=== PATIENT | female | born 1985 | race Caucasian/White ===

== ENCOUNTER 2017-12-23 13:05 | Emergency (ER) | payer OTHER ==
[~2017-12-23] VITALS: Ht 162.6 cm; Wt 162.4 kg
[~2017-12-23 13:05] MED LIST: ALBUTEROL INHAL17 GM IH; AMOXICILLIN 50500 MG PO; AMOXICILLIN875 MG PO; CELEXA 20 MG TA20 M1; CELEXA20 MG PO; CIPRO500 MG PO; CYCLOBENZAPRINE5 MG PO; DICLOFENAC SODI75 MG PO; FLAGYL500 MG PO; HYDROCODONE-AP1 EAC6 PO; IBUPROFEN 600600 M1 PO; IBUPROFEN 800800 M1 PO; IBUPROFEN 800800 MG PO; LORTABELXR PO; MACROBID 100 M100 M1 PO; MOBIC7.5 MG PO; NORCO 5-325 TA1 EACH PO; PRENATAL; PROTONIX40 M2; PROTONIX40 M2 PO; PYRIDIUM200 MG PO; RANITIDINE 150150 MG PO; TRAMADOL 50 MG50 MG PO; TUMS PO; TUSSIN COUGH15 MG; ZOFRAN ODT4 MG PO; ZOLOFT 50 MG TA50 M1 PO; ZOLOFT25 MG PO; ZPAK PO
[2017-12-23] MEDS ORDERED: ZANTAC 150MG T150 MG PO (13:12)
[2017-12-23 13:35] LABS: INFLUENZA A ANTIGEN None Detected (None Detect); INFLUENZA B ANTIGEN None Detected (None Detect)
[2017-12-23] MEDS ORDERED: PROAIR HFA8.5 GM INH (14:31)
[2017-12-23] MEDS ORDERED: MEDROLDOSEPACK PO (14:31)
[2017-12-23] MEDS ORDERED: PROMETHAZINE V473 ML PO (14:31)
[2017-12-23] MEDS ORDERED: ZPAK PO (14:31)
[2017-12-23] MEDS ORDERED: AUGMENTIN 875-1 EACH PO (14:38)
[2017-12-23 14:39] VITALS: BP 177/102
== END 2017-12-23 14:40 | disposition home or self-care (01) ==
LOC: M.ERS 13:05
PROVIDERS: Physician Assistant
DX: J20.9 Acute bronchitis, unspecified (principal); K21.9 Gastro-esophageal reflux disease without esophagitis; F32.9 Major depressive disorder, single episode, unspecified; Z98.890 Other specified postprocedural states; Z88.1 Allergy status to other antibiotic agents

== ENCOUNTER 2018-06-05 12:00 | Emergency (ER) | payer OTHER ==
[~2018-06-05] VITALS: Ht 162.6 cm; Wt 162.4 kg
[~2018-06-05 12:00] MED LIST changes: +AUGMENTIN 875-1 EACH PO; +MEDROLDOSEPACK PO; +PROAIR HFA8.5 GM INH; +PROMETHAZINE V473 ML PO; +ZANTAC 150MG T150 MG PO
[2018-06-05] MEDS ORDERED: METFORMIN HCL500 MG PO (12:15)
[2018-06-05] MEDS ORDERED: WELLBUTRIN SR100 MG PO (12:15)
[2018-06-05] MEDS ORDERED: CELEXA10 MG PO (12:15)
[2018-06-05] MEDS ORDERED: GLIMEPIRIDE4 MG PO (12:16)
[2018-06-05 12:20] LABS: URINE BILIRUBIN NEGATIVE (Negative); URINE BLOOD TRACE (Negative); URINE CLARITY CLEAR; URINE COLOR YELLOW; URINE GLUCOSE-RANDOM NEGATIVE (Negative); URINE KETONES NEGATIVE (Negative); URINE LEUKOCYTES-REFLEX NEGATIVE (Negative); URINE NITRITE-REFLEX NEGATIVE (Negative); URINE PROTEIN NEGATIVE (Negative); URINE SPECIFIC GRAVITY 1.025 (1.005-1.030)
[2018-06-05 12:43] LABS: ABSOLUTE BASOPHILS 0.1 thou/uL (0.0-0.2); ABSOLUTE EOSINOPHILS 0.2 thou/uL (0.0-0.7); ABSOLUTE LYMPHOCYTES 2.6 thou/uL (0.8-5.3); ABSOLUTE MONOCYTES 0.8 thou/uL (0.0-1.2); ABSOLUTE NEUTROPHILS 7.7 thou/uL (1.6-8.1); BASOPHILS 1.1 %; EOSINOPHILS 1.9 %; HEMATOCRIT 41.2 % (37.0-47.0); HEMOGLOBIN 14.2 gm/dL (12.0-15.0); LYMPHOCYTES 22.4 %; MCH 30.6 pg (26.0-34.0); MCHC 34.5 g/dL (28.0-37.0); MCV 88.9 fL (80.0-100.0); MONOCYTES 7.2 %; MPV 7.8 fl. (7.2-11.1); NUCLEATED RBCS 0 /100WBC; PLATELET COUNT* 268 thou/uL (150-400); POLYS 67.4 %; RBC 4.63 mil/uL (4.20-5.00); WBC 11.4 thou/uL (4.0-11.0)
[2018-06-05 12:52] LABS: CALCIUM 8.2 mg/dL (8.5-10.1); CREATININE 0.6 mg/dL (0.6-1.3); POTASSIUM 3.7 mmol/L (3.5-5.1)
[2018-06-05 12:56] LABS: ALBUMIN 3.1 g/dL (3.4-5.0); TOTAL BILIRUBIN 0.2 mg/dL (<0.1-1.0); TOTAL PROTEIN 7.7 g/dL (6.4-8.2)
[2018-06-05 15:13] VITALS: BP 138/71
== END 2018-06-05 15:16 | disposition home or self-care (01) ==
LOC: M.ERS 12:00
PROVIDERS: Nurse Practitioner Family
DX: R10.32 Left lower quadrant pain (principal); K21.9 Gastro-esophageal reflux disease without esophagitis; F32.9 Major depressive disorder, single episode, unspecified; Z90.49 Acquired absence of other specified parts of digestive tract; Z98.890 Other specified postprocedural states; Z88.1 Allergy status to other antibiotic agents

== ENCOUNTER 2018-12-23 09:29 | Emergency (ER) | payer OTHER ==
[~2018-12-23] VITALS: Ht 162.6 cm; Wt 156.5 kg
[~2018-12-23 09:29] MED LIST changes: +CELEXA10 MG PO; +GLIMEPIRIDE4 MG PO; +METFORMIN HCL500 MG PO; +WELLBUTRIN SR100 MG PO
[2018-12-23] MEDS ORDERED: TRULICITY0.75 MG/0. INJECTION (09:38)
[2018-12-23] MEDS ORDERED: KEFLEX500 M1 PO (11:24)
[2018-12-23 11:45] VITALS: BP 150/77
== END 2018-12-23 11:40 | disposition home or self-care (01) ==
LOC: M.ERS 09:29
DX: R22.1 Localized swelling, mass and lump, neck (principal); K21.9 Gastro-esophageal reflux disease without esophagitis; F32.9 Major depressive disorder, single episode, unspecified; E11.9 Type 2 diabetes mellitus without complications; Z88.1 Allergy status to other antibiotic agents; Z98.890 Other specified postprocedural states

== ENCOUNTER → 2018-12-26 | Outpatient (CLI) | payer OTHER ==
[~2018-12-26] MED LIST changes: +KEFLEX500 M1 PO; +TRULICITY0.75 MG/0. INJECTION
[2018-12-26 11:32] LABS: HEMATOCRIT 40.3 % (37.0-47.0); HEMOGLOBIN 13.5 gm/dL (12.0-15.0); MCH 29.5 pg (26.0-34.0); MCHC 33.6 g/dL (28.0-37.0); MPV 7.4 fl. (7.2-11.1); RBC 4.58 mil/uL (4.20-5.00); WBC 14.9 thou/uL (4.0-11.0)
[2018-12-26 11:44] LABS: CALCIUM 8.8 mg/dL (8.5-10.1); CREATININE 0.7 mg/dL (0.6-1.3); POTASSIUM 3.9 mmol/L (3.5-5.1); TOTAL BILIRUBIN 0.3 mg/dL (<0.1-1.0); TOTAL PROTEIN 7.8 g/dL (6.4-8.2)
== END ==
LOC: M.LAB 10:45 → M.CT 11:30
PROVIDERS: Nurse Practitioner Family
DX: R22.1 Localized swelling, mass and lump, neck (principal)

== ENCOUNTER 2019-03-16 09:56 | Emergency (ER) | payer OTHER ==
[~2019-03-16] VITALS: Ht 162.6 cm; Wt 156.0 kg
[2019-03-16] MEDS ORDERED: HYDROCODONE-AP1 EAC6 PO (10:59)
[2019-03-16] MEDS ORDERED: NABUMETONE 750750 M1 PO (10:59)
[2019-03-16 11:17] VITALS: BP 172/102
== END 2019-03-16 11:17 | disposition home or self-care (01) ==
LOC: M.ERS 09:56
DX: G56.32 Lesion of radial nerve, left upper limb (principal); K21.9 Gastro-esophageal reflux disease without esophagitis; F32.9 Major depressive disorder, single episode, unspecified; E11.9 Type 2 diabetes mellitus without complications; Z98.890 Other specified postprocedural states; Z88.1 Allergy status to other antibiotic agents; Z91.041 Radiographic dye allergy status

== ENCOUNTER 2019-05-05 13:43 | Emergency (ER) | payer OTHER ==
[~2019-05-05] VITALS: Ht 162.6 cm; Wt 156.0 kg
[~2019-05-05 13:43] MED LIST changes: +NABUMETONE 750750 M1 PO
[2019-05-05] MEDS ORDERED: COZAAR 25 MG TA25 M1 (13:55)
[2019-05-05 14:10] LABS: URINE BILIRUBIN NEGATIVE (Negative); URINE BLOOD TRACE (Negative); URINE CLARITY CLEAR; URINE COLOR YELLOW; URINE GLUCOSE-RANDOM NEGATIVE (Negative); URINE KETONES NEGATIVE (Negative); URINE LEUKOCYTES-REFLEX NEGATIVE (Negative); URINE NITRITE-REFLEX NEGATIVE (Negative); URINE PROTEIN NEGATIVE (Negative); URINE UROBILINOGEN 0.2 E.U./dl (0.2-1.0)
[2019-05-05] MEDS ORDERED: BUTALB-APAP-CA1 EACH PO (14:53)
[2019-05-05 15:00] VITALS: BP 109/63
== END 2019-05-05 15:04 | disposition home or self-care (01) ==
LOC: M.ERS 13:43
PROVIDERS: Nurse Practitioner Psychiatric/Mental Health
DX: R51 Headache (principal); R11.2 Nausea with vomiting, unspecified; K21.9 Gastro-esophageal reflux disease without esophagitis; F32.9 Major depressive disorder, single episode, unspecified; E11.9 Type 2 diabetes mellitus without complications; Z88.1 Allergy status to other antibiotic agents; Z91.041 Radiographic dye allergy status; Z90.49 Acquired absence of other specified parts of digestive tract; Z98.890 Other specified postprocedural states

== ENCOUNTER 2019-06-01 10:20 | Emergency (ER) | payer OTHER ==
[~2019-06-01] VITALS: Ht 162.6 cm; Wt 156.0 kg
[~2019-06-01 10:20] MED LIST changes: +BUTALB-APAP-CA1 EACH PO; +COZAAR 25 MG TA25 M1; +PHENERGAN 25 MG25 M1 PO; +PROPRANOLOL 1010 MG PO
[2019-06-01 11:17] LABS: ABSOLUTE BASOPHILS 0.1 thou/uL (0.0-0.2); ABSOLUTE EOSINOPHILS 0.1 thou/uL (0.0-0.7); ABSOLUTE MONOCYTES 0.8 thou/uL (0.0-1.2); ABSOLUTE NEUTROPHILS 4.9 thou/uL (1.6-8.1); BASOPHILS 0.7 %; EOSINOPHILS 1.4 %; HEMATOCRIT 40.1 % (37.0-47.0); HEMOGLOBIN 13.5 gm/dL (12.0-15.0); LYMPHOCYTES 25.4 %; MCH 29.3 pg (26.0-34.0); MCHC 33.7 g/dL (28.0-37.0); MCV 86.8 fL (80.0-100.0); MONOCYTES 10.5 %; MPV 7.8 fl. (7.2-11.1); NUCLEATED RBCS 0 /100WBC; PLATELET COUNT* 257 thou/uL (150-400); RBC 4.62 mil/uL (4.20-5.00); RDW-CV 13.4 % (10.5-14.5); WBC 7.9 thou/uL (4.0-11.0)
[2019-06-01 11:18] LABS: URINE BILIRUBIN NEGATIVE (Negative); URINE BLOOD 3+ (Negative); URINE CLARITY CLEAR; URINE COLOR YELLOW; URINE GLUCOSE-RANDOM NEGATIVE (Negative); URINE KETONES NEGATIVE (Negative); URINE LEUKOCYTES-REFLEX NEGATIVE (Negative); URINE NITRITE-REFLEX NEGATIVE (Negative); URINE PROTEIN NEGATIVE (Negative); URINE SPECIFIC GRAVITY <= 1.005 (1.005-1.030); URINE UROBILINOGEN 0.2 E.U./dl (0.2-1.0)
[2019-06-01 11:24] LABS: ANION GAP 8 mmol/L (7-16); BUN 7 mg/dL (7-18); CALCIUM 8.7 mg/dL (8.5-10.1); CHLORIDE 104 mmol/L (98-107); CO2 26 mmol/L (21-32); CREATININE 0.7 mg/dL (0.6-1.3); GLUCOSE 103 mg/dL (70-99); POTASSIUM 4.1 mmol/L (3.5-5.1); SODIUM 138 mmol/L (136-145)
[2019-06-01 11:29] LABS: SGOT 23 U/L (15-37); SGPT 38 U/L (30-65); TOTAL BILIRUBIN 0.2 mg/dL (<0.1-1.0); TOTAL PROTEIN 7.4 g/dL (6.4-8.2)
[2019-06-01 11:34] LABS: BACTERIA-REFLEX 1-9 Few /HPF (None Seen); CASTS None Seen /LPF (None Seen); CRYSTALS None Seen /LPF (None Seen); MUCUS None Seen strn/LPF (None Seen); SQUAMOUS >10 Many /LPF (0-3); URINE RBC 3-10 Few /HPF (0-2); URINE WBC-REFLEX 0-5 Rare /HPF (0-5)
[2019-06-01] MEDS ORDERED: TRANSDERM-SCOP1 EACH TRANSDERM (12:00)
[2019-06-01 12:18] VITALS: BP 143/82
== END 2019-06-01 12:18 | disposition home or self-care (01) ==
LOC: M.ERS 10:20
PROVIDERS: Physician Assistant
DX: R51 Headache (principal); R42 Dizziness and giddiness; K21.9 Gastro-esophageal reflux disease without esophagitis; F32.9 Major depressive disorder, single episode, unspecified; E11.9 Type 2 diabetes mellitus without complications; Z88.1 Allergy status to other antibiotic agents; Z91.041 Radiographic dye allergy status; Z90.49 Acquired absence of other specified parts of digestive tract; Z98.890 Other specified postprocedural states

== ENCOUNTER 2019-06-02 08:28 | Emergency (ER) | payer OTHER ==
[~2019-06-02] VITALS: Ht 162.6 cm; Wt 156.0 kg
[~2019-06-02 08:28] MED LIST changes: +TRANSDERM-SCOP1 EACH TRANSDERM
[2019-06-02 10:35] VITALS: BP 111/57
== END 2019-06-02 10:35 | disposition home or self-care (01) ==
LOC: M.ERS 08:28
DX: R51 Headache (principal); E11.9 Type 2 diabetes mellitus without complications; F32.9 Major depressive disorder, single episode, unspecified; K21.9 Gastro-esophageal reflux disease without esophagitis; Z91.041 Radiographic dye allergy status; Z88.1 Allergy status to other antibiotic agents; Z98.890 Other specified postprocedural states; Z90.49 Acquired absence of other specified parts of digestive tract

== ENCOUNTER 2019-06-06 17:26 | Emergency (ER) | payer OTHER ==
[~2019-06-06] VITALS: Ht 162.6 cm; Wt 156.5 kg
[2019-06-06] MEDS ORDERED: IMITREX100 MG PO (17:39)
[2019-06-06] MEDS ORDERED: ANTIVERT25 MG PO (18:15)
[2019-06-06] MEDS ORDERED: TRANSDERM-SCOP1 EACH TRANSDERM (18:15)
[2019-06-06 18:36] VITALS: BP 130/68
== END 2019-06-06 18:42 | disposition home or self-care (01) ==
LOC: M.ERS 17:26
DX: G43.909 Migraine, unspecified, not intractable, without status migrainosus (principal); K21.9 Gastro-esophageal reflux disease without esophagitis; F32.9 Major depressive disorder, single episode, unspecified; E11.9 Type 2 diabetes mellitus without complications; Z98.890 Other specified postprocedural states; Z91.041 Radiographic dye allergy status; Z88.1 Allergy status to other antibiotic agents

== ENCOUNTER 2019-06-17 10:03 | Emergency (ER) | payer OTHER ==
[~2019-06-17] VITALS: Ht 162.6 cm; Wt 156.0 kg
[~2019-06-17 10:03] MED LIST changes: +ANTIVERT25 MG PO; +IMITREX100 MG PO
[2019-06-17 10:37] LABS: ABSOLUTE BASOPHILS 0.1 thou/uL (0.0-0.2); ABSOLUTE EOSINOPHILS 0.2 thou/uL (0.0-0.7); ABSOLUTE LYMPHOCYTES 2.9 thou/uL (0.8-5.3); ABSOLUTE MONOCYTES 0.9 thou/uL (0.0-1.2); ABSOLUTE NEUTROPHILS 8.6 thou/uL (1.6-8.1); EOSINOPHILS 1.4 %; HEMATOCRIT 39.7 % (37.0-47.0); HEMOGLOBIN 13.5 gm/dL (12.0-15.0); LYMPHOCYTES 22.6 %; MCH 29.7 pg (26.0-34.0); MCV 87.2 fL (80.0-100.0); MONOCYTES 7.2 %; NUCLEATED RBCS 0 /100WBC; PLATELET COUNT* 268 thou/uL (150-400); POLYS 67.8 %; RBC 4.55 mil/uL (4.20-5.00); RDW-CV 13.5 % (10.5-14.5); WBC 12.7 thou/uL (4.0-11.0)
[2019-06-17 10:55] LABS: CALCIUM 8.2 mg/dL (8.5-10.1); CREATININE 0.6 mg/dL (0.6-1.3); POTASSIUM 4.3 mmol/L (3.5-5.1)
[2019-06-17 11:00] LABS: ALBUMIN 2.9 g/dL (3.4-5.0); TOTAL BILIRUBIN 0.1 mg/dL (<0.1-1.0)
[2019-06-17 12:19] VITALS: BP 128/79
== END 2019-06-17 12:19 | disposition home or self-care (01) ==
LOC: M.ERS 10:03
PROVIDERS: Nurse Practitioner Family
DX: G43.909 Migraine, unspecified, not intractable, without status migrainosus (principal); F32.9 Major depressive disorder, single episode, unspecified; E11.9 Type 2 diabetes mellitus without complications; K21.9 Gastro-esophageal reflux disease without esophagitis; Z98.890 Other specified postprocedural states; Z88.1 Allergy status to other antibiotic agents; Z91.041 Radiographic dye allergy status

== ENCOUNTER 2019-07-09 10:21 | Emergency (ER) | payer OTHER ==
[~2019-07-09] VITALS: Ht 162.6 cm; Wt 156.0 kg
[2019-07-09 12:13] VITALS: BP 132/80
== END 2019-07-09 12:14 | disposition home or self-care (01) ==
LOC: M.ERS 10:21
DX: G43.909 Migraine, unspecified, not intractable, without status migrainosus (principal); K21.9 Gastro-esophageal reflux disease without esophagitis; F32.9 Major depressive disorder, single episode, unspecified; I10 Essential (primary) hypertension; E11.9 Type 2 diabetes mellitus without complications; Z91.041 Radiographic dye allergy status; Z88.1 Allergy status to other antibiotic agents; Z90.49 Acquired absence of other specified parts of digestive tract; Z98.890 Other specified postprocedural states

== ENCOUNTER 2019-07-10 17:31 | Emergency (ER) | payer OTHER ==
[~2019-07-10] VITALS: Ht 162.6 cm; Wt 158.8 kg
[2019-07-10 19:30] VITALS: BP 128/64
== END 2019-07-10 19:30 | disposition home or self-care (01) ==
LOC: M.ERS 17:31
DX: G43.909 Migraine, unspecified, not intractable, without status migrainosus (principal); K21.9 Gastro-esophageal reflux disease without esophagitis; F32.9 Major depressive disorder, single episode, unspecified; E11.9 Type 2 diabetes mellitus without complications; I10 Essential (primary) hypertension; Z88.1 Allergy status to other antibiotic agents; Z91.041 Radiographic dye allergy status; Z98.890 Other specified postprocedural states

== ENCOUNTER 2019-09-23 10:08 | Emergency (ER) | payer OTHER ==
[~2019-09-23] VITALS: Ht 162.6 cm; Wt 167.4 kg
[2019-09-23] MEDS ORDERED: TOPAMAX100 MG PO (10:20)
[2019-09-23 11:44] VITALS: BP 143/87
== END 2019-09-23 11:44 | disposition home or self-care (01) ==
LOC: M.ERS 10:08
DX: S93.491A Sprain of other ligament of right ankle, initial encounter (principal); E11.9 Type 2 diabetes mellitus without complications; I10 Essential (primary) hypertension; G43.909 Migraine, unspecified, not intractable, without status migrainosus; K21.9 Gastro-esophageal reflux disease without esophagitis; F32.9 Major depressive disorder, single episode, unspecified; Z98.890 Other specified postprocedural states; Z88.1 Allergy status to other antibiotic agents; Z91.041 Radiographic dye allergy status; X58.XXXA Exposure to other specified factors, initial encounter; Y93.89 Activity, other specified; Y92.89 Other specified places as the place of occurrence of the external cause; Y99.8 Other external cause status

== ENCOUNTER 2019-11-10 12:05 | Emergency (ER) | payer OTHER ==
[~2019-11-10] VITALS: Ht 162.6 cm; Wt 169.7 kg
[~2019-11-10 12:05] MED LIST changes: +TOPAMAX100 MG PO
[2019-11-10] MEDS ORDERED: NORCO 5-325 TA1 EAC1 PO (13:53)
[2019-11-10 14:04] VITALS: BP 135/85
== END 2019-11-10 14:05 | disposition home or self-care (01) ==
LOC: M.ERS 12:05
DX: M77.51 Other enthesopathy of right foot and ankle (principal); I10 Essential (primary) hypertension; E11.9 Type 2 diabetes mellitus without complications; G43.909 Migraine, unspecified, not intractable, without status migrainosus; K21.9 Gastro-esophageal reflux disease without esophagitis; Z98.890 Other specified postprocedural states; Z90.49 Acquired absence of other specified parts of digestive tract; Z88.1 Allergy status to other antibiotic agents; Z91.041 Radiographic dye allergy status

== ENCOUNTER 2019-11-16 14:47 | Emergency (ER) | payer OTHER ==
[~2019-11-16] VITALS: Ht 162.6 cm; Wt 167.8 kg
[~2019-11-16 14:47] MED LIST changes: +NORCO 5-325 TA1 EAC1 PO
[2019-11-16] MEDS ORDERED: IBUPROFEN 600600 M1 PO (19:12)
[2019-11-16 19:15] VITALS: BP 140/89
== END 2019-11-16 19:16 | disposition home or self-care (01) ==
LOC: M.ERS 14:47
DX: M25.512 Pain in left shoulder (principal); K21.9 Gastro-esophageal reflux disease without esophagitis; E11.9 Type 2 diabetes mellitus without complications; I10 Essential (primary) hypertension; G43.909 Migraine, unspecified, not intractable, without status migrainosus; E66.01 Morbid (severe) obesity due to excess calories; Z68.44 Body mass index [BMI] 60.0-69.9, adult; Z88.1 Allergy status to other antibiotic agents; Z91.041 Radiographic dye allergy status; Z98.890 Other specified postprocedural states

== ENCOUNTER 2019-11-20 16:27 | Emergency (ER) | payer OTHER ==
[~2019-11-20] VITALS: Ht 162.6 cm; Wt 167.8 kg
[2019-11-20 17:42] LABS: ABSOLUTE BASOPHILS 0.1 thou/uL (0.0-0.2); ABSOLUTE EOSINOPHILS 0.2 thou/uL (0.0-0.7); ABSOLUTE LYMPHOCYTES 2.4 thou/uL (0.8-5.3); ABSOLUTE MONOCYTES 0.7 thou/uL (0.0-1.2); ABSOLUTE NEUTROPHILS 7.8 thou/uL (1.6-8.1); BASOPHILS 1.1 %; EOSINOPHILS 1.9 %; HEMATOCRIT 44.5 % (37.0-47.0); HEMOGLOBIN 15.1 gm/dL (12.0-15.0); LYMPHOCYTES 21.5 %; MCH 29.7 pg (26.0-34.0); MCHC 33.8 g/dL (28.0-37.0); MCV 87.6 fL (80.0-100.0); MPV 8.1 fl. (7.2-11.1); NUCLEATED RBCS 0 /100WBC; PLATELET COUNT* 242 thou/uL (150-400); POLYS 69.5 %; RBC 5.08 mil/uL (4.20-5.00); RDW-CV 13.6 % (10.5-14.5); WBC 11.2 thou/uL (4.0-11.0)
[2019-11-20 17:50] LABS: CALCIUM 8.6 mg/dL (8.5-10.1); CREATININE 0.8 mg/dL (0.6-1.3); POTASSIUM 3.8 mmol/L (3.5-5.1)
[2019-11-20 17:55] LABS: ALBUMIN 3.2 g/dL (3.4-5.0); TOTAL BILIRUBIN 0.4 mg/dL (<0.1-1.0); TOTAL PROTEIN 7.9 g/dL (6.4-8.2)
[2019-11-20 18:36] VITALS: BP 158/98
== END 2019-11-20 18:40 | disposition home or self-care (01) ==
LOC: M.ERS 16:27
PROVIDERS: Physician Assistant
DX: G43.909 Migraine, unspecified, not intractable, without status migrainosus (principal); R74.0 Nonspecific elevation of levels of transaminase and lactic acid dehydrogenase [LDH]; R11.0 Nausea; K21.9 Gastro-esophageal reflux disease without esophagitis; I10 Essential (primary) hypertension; E11.9 Type 2 diabetes mellitus without complications; F32.9 Major depressive disorder, single episode, unspecified; E66.01 Morbid (severe) obesity due to excess calories; Z68.44 Body mass index [BMI] 60.0-69.9, adult; Z88.1 Allergy status to other antibiotic agents; Z88.8 Allergy status to other drugs, medicaments and biological substances; Z79.899 Other long term (current) drug therapy

== ENCOUNTER → 2019-11-30 | Outpatient (CLI) | payer OTHER | LOC: M.ULTRA 07:23 | DX: K76.0 Fatty (change of) liver, not elsewhere classified (principal); R16.0 Hepatomegaly, not elsewhere classified; Z90.49 Acquired absence of other specified parts of digestive tract ==

== ENCOUNTER 2020-05-18 11:22 | Emergency (ER) | payer OTHER ==
[~2020-05-18] VITALS: Ht 162.6 cm; Wt 165.6 kg
[2020-05-18] MEDS ORDERED: NAPROSYN500 MG PO (14:38)
[2020-05-18 14:50] VITALS: BP 121/66
== END 2020-05-18 14:51 | disposition home or self-care (01) ==
LOC: M.ERS 11:22
DX: M25.512 Pain in left shoulder (principal); I10 Essential (primary) hypertension; G43.909 Migraine, unspecified, not intractable, without status migrainosus; K21.9 Gastro-esophageal reflux disease without esophagitis; E11.9 Type 2 diabetes mellitus without complications; E66.01 Morbid (severe) obesity due to excess calories; Z68.44 Body mass index [BMI] 60.0-69.9, adult; Z98.890 Other specified postprocedural states; Z88.1 Allergy status to other antibiotic agents; Z91.041 Radiographic dye allergy status

== ENCOUNTER → 2020-06-03 | Outpatient (CLI) | payer OTHER ==
[~2020-06-03] MED LIST changes: +APAP W/CODEINE1 TA2 PO; +BACTRIM DS TAB1 EACH PO; +CEFDINIR300 MG PO; +CELEXA 10 MG TA10 M1 PO; +DESYREL150 MG PO; +DOXYCYCLINE 10100 M2 PO; +DOXYCYCLINE 10100 MG PO; +NAPROSYN500 MG PO; +NEURONTIN 300M300 M2 PO; +NEXIUM20 MG PO; +NORCO 5-325 TA1 EAC2 PO; +PREDNISONE 20 M20 MG PO; +PROMETHAZI6.25 MG/5 PO; +TESSALON PERLE100 M1 PO; +TESSALON PERLE100 MG PO; +TORADOL 10 MG T10 MG PO; +TOUJEO SOL300 UNIT/1 SUBQ; +VENLAFAXINE H37.5 M2 PO; +VENTOLIN HFA 1818 GM INH; +ZOFRAN ODT4 MG DISSOLVE
== END ==
LOC: M.ULTRA 07:32 → M.MRI 11:30
PROVIDERS: ATTEND Nurse Practitioner Family
DX: R16.0 Hepatomegaly, not elsewhere classified (principal); M25.512 Pain in left shoulder; R74.8 Abnormal levels of other serum enzymes; K76.0 Fatty (change of) liver, not elsewhere classified; M75.102 Unspecified rotator cuff tear or rupture of left shoulder, not specified as traumatic; M25.812 Other specified joint disorders, left shoulder; Z90.49 Acquired absence of other specified parts of digestive tract

== ENCOUNTER 2020-07-02 14:54 | Emergency (ER) | payer OTHER ==
[~2020-07-02] VITALS: Ht 162.6 cm; Wt 157.8 kg
[~2020-07-02 14:54] MED LIST changes: -APAP W/CODEINE1 TA2 PO; -BACTRIM DS TAB1 EACH PO; -CEFDINIR300 MG PO; -CELEXA 10 MG TA10 M1 PO; -DESYREL150 MG PO; -DOXYCYCLINE 10100 M2 PO; -DOXYCYCLINE 10100 MG PO; -NEURONTIN 300M300 M2 PO; -NEXIUM20 MG PO; -NORCO 5-325 TA1 EAC2 PO; -PREDNISONE 20 M20 MG PO; -PROMETHAZI6.25 MG/5 PO; -TESSALON PERLE100 M1 PO; -TESSALON PERLE100 MG PO; -TORADOL 10 MG T10 MG PO; -TOUJEO SOL300 UNIT/1 SUBQ; -VENLAFAXINE H37.5 M2 PO; -VENTOLIN HFA 1818 GM INH; -ZOFRAN ODT4 MG DISSOLVE
[2020-07-02] MEDS ORDERED: NEURONTIN 300M300 M2 PO (15:06)
[2020-07-02] MEDS ORDERED: CELEXA 10 MG TA10 M1 PO (15:06)
[2020-07-02] MEDS ORDERED: NEXIUM20 MG PO (15:06)
[2020-07-02] MEDS ORDERED: TOUJEO SOL300 UNIT/1 SUBQ (15:07)
[2020-07-02] MEDS ORDERED: DESYREL150 MG PO (15:08)
[2020-07-02] MEDS ORDERED: IBUPROFEN 800800 M1 PO (15:13)
[2020-07-02] MEDS ORDERED: DOXYCYCLINE 10100 MG PO (15:13)
[2020-07-02] MEDS ORDERED: NORCO 5-325 TA1 EAC2 PO (15:13)
[2020-07-02 15:22] VITALS: BP 162/105
== END 2020-07-02 15:23 | disposition home or self-care (01) ==
LOC: M.ERS 14:54
DX: L02.212 Cutaneous abscess of back [any part, except buttock and flank] (principal); L03.312 Cellulitis of back [any part except buttock and flank]; I10 Essential (primary) hypertension; E11.9 Type 2 diabetes mellitus without complications; E66.01 Morbid (severe) obesity due to excess calories; K21.9 Gastro-esophageal reflux disease without esophagitis; F32.9 Major depressive disorder, single episode, unspecified; G43.909 Migraine, unspecified, not intractable, without status migrainosus; Z68.43 Body mass index [BMI] 50.0-59.9, adult; Z98.890 Other specified postprocedural states; Z90.49 Acquired absence of other specified parts of digestive tract; Z91.041 Radiographic dye allergy status; Z88.1 Allergy status to other antibiotic agents

== ENCOUNTER 2020-07-03 16:08 | Emergency (ER) | payer OTHER ==
[~2020-07-03] VITALS: Ht 162.6 cm; Wt 170.6 kg
[~2020-07-03 16:08] MED LIST changes: +CELEXA 10 MG TA10 M1 PO; +DESYREL150 MG PO; +DOXYCYCLINE 10100 MG PO; +NEURONTIN 300M300 M2 PO; +NEXIUM20 MG PO; +NORCO 5-325 TA1 EAC2 PO; +TOUJEO SOL300 UNIT/1 SUBQ
[2020-07-03 17:11] LABS: ABSOLUTE BASOPHILS 0.1 thou/uL (0.0-0.2); ABSOLUTE EOSINOPHILS 0.3 thou/uL (0.0-0.7); ABSOLUTE LYMPHOCYTES 2.2 thou/uL (0.8-5.3); ABSOLUTE MONOCYTES 0.8 thou/uL (0.0-1.2); ABSOLUTE NEUTROPHILS 8.1 thou/uL (1.6-8.1); BASOPHILS 0.8 %; EOSINOPHILS 2.2 %; HEMATOCRIT 42.2 % (37.0-47.0); HEMOGLOBIN 14.7 gm/dL (12.0-15.0); LYMPHOCYTES 19.1 %; MCH 31.1 pg (26.0-34.0); MCHC 34.8 g/dL (28.0-37.0); MCV 89.3 fL (80.0-100.0); MONOCYTES 6.8 %; MPV 8.5 fl. (7.2-11.1); NUCLEATED RBCS 0 /100WBC; PLATELET COUNT* 182 thou/uL (150-400); POLYS 71.1 %; RBC 4.73 mil/uL (4.20-5.00); RDW-CV 12.6 % (10.5-14.5); WBC 11.5 thou/uL (4.0-11.0)
[2020-07-03 17:15] LABS: URINE BILIRUBIN NEGATIVE (Negative); URINE BLOOD NEGATIVE (Negative); URINE CLARITY CLEAR; URINE COLOR YELLOW; URINE GLUCOSE-RANDOM 2+ (Negative); URINE KETONES NEGATIVE (Negative); URINE LEUKOCYTES-REFLEX NEGATIVE (Negative); URINE NITRITE-REFLEX NEGATIVE (Negative); URINE PROTEIN NEGATIVE (Negative)
[2020-07-03 17:19] LABS: CREATININE 0.8 mg/dL (0.6-1.3); POTASSIUM 3.8 mmol/L (3.5-5.1)
[2020-07-03 17:33] LABS: ALBUMIN 2.9 g/dL (3.4-5.0); TOTAL BILIRUBIN 0.4 mg/dL (<0.1-1.0); TOTAL PROTEIN 7.4 g/dL (6.4-8.2)
[2020-07-03 18:01] VITALS: BP 137/70
== END 2020-07-03 18:02 | disposition home or self-care (01) ==
LOC: M.ERS 16:08
PROVIDERS: Physician Assistant
DX: L03.312 Cellulitis of back [any part except buttock and flank] (principal); I10 Essential (primary) hypertension; E11.9 Type 2 diabetes mellitus without complications; E66.01 Morbid (severe) obesity due to excess calories; K21.9 Gastro-esophageal reflux disease without esophagitis; G43.909 Migraine, unspecified, not intractable, without status migrainosus; F32.9 Major depressive disorder, single episode, unspecified; Z68.44 Body mass index [BMI] 60.0-69.9, adult; Z79.4 Long term (current) use of insulin; Z98.890 Other specified postprocedural states; Z91.041 Radiographic dye allergy status; Z88.1 Allergy status to other antibiotic agents

== ENCOUNTER 2020-07-06 17:12 | Observation (INO) | payer OTHER ==
[~2020-07-06] VITALS: Ht 162.6 cm; Wt 171.0 kg
[2020-07-06 17:31] VITALS: BP 154/93
[2020-07-06 18:40] LABS: ABSOLUTE BASOPHILS 0.1 thou/uL (0.0-0.2); ABSOLUTE EOSINOPHILS 0.2 thou/uL (0.0-0.7); ABSOLUTE LYMPHOCYTES 2.5 thou/uL (0.8-5.3); ABSOLUTE MONOCYTES 0.7 thou/uL (0.0-1.2); ABSOLUTE NEUTROPHILS 4.8 thou/uL (1.6-8.1); EOSINOPHILS 2.8 %; HEMATOCRIT 42.3 % (37.0-47.0); HEMOGLOBIN 14.7 gm/dL (12.0-15.0); LYMPHOCYTES 30.1 %; MCH 31.1 pg (26.0-34.0); MCHC 34.7 g/dL (28.0-37.0); MCV 89.5 fL (80.0-100.0); MONOCYTES 8.2 %; MPV 8.3 fl. (7.2-11.1); NUCLEATED RBCS 0 /100WBC; PLATELET COUNT* 213 thou/uL (150-400); POLYS 57.9 %; RBC 4.72 mil/uL (4.20-5.00); RDW-CV 12.7 % (10.5-14.5); WBC 8.3 thou/uL (4.0-11.0)
[2020-07-06 18:50] LABS: APTT 27.3 Seconds (25.0-31.3); PROTIME 10.4 Seconds (9.20-11.50)
[2020-07-06 19:02] LABS: CALCIUM 8.5 mg/dL (8.5-10.1); CREATININE 0.8 mg/dL (0.6-1.3); POTASSIUM 4.4 mmol/L (3.5-5.1)
[2020-07-06 19:07] LABS: ALBUMIN 2.9 g/dL (3.4-5.0); TOTAL BILIRUBIN 0.2 mg/dL (<0.1-1.0); TOTAL PROTEIN 7.6 g/dL (6.4-8.2)
[2020-07-06 19:45] VITALS: BP 134/66
[2020-07-06 19:46] VITALS: BP 148/73
[2020-07-07 03:56] LABS: URINE BILIRUBIN NEGATIVE (Negative); URINE BLOOD NEGATIVE (Negative); URINE CLARITY CLEAR; URINE COLOR DARK YELLOW; URINE GLUCOSE-RANDOM 1+ (Negative); URINE KETONES NEGATIVE (Negative); URINE LEUKOCYTES-REFLEX NEGATIVE (Negative); URINE NITRITE-REFLEX NEGATIVE (Negative); URINE PROTEIN TRACE (Negative); URINE SPECIFIC GRAVITY >= 1.030 (1.005-1.030); URINE UROBILINOGEN 0.2 E.U./dl (0.2-1.0)
[2020-07-07 04:00] VITALS: BP 130/65
[2020-07-07 07:40] VITALS: BP 129/85
[2020-07-07] MEDS ORDERED: BACTRIM DS TAB1 EACH PO (08:13)
[2020-07-07] MEDS ORDERED: NORCO 5-325 TA1 EAC2 PO (08:13)
[2020-07-07 12:25] VITALS: BP 129/85
== END 2020-07-07 19:20 | disposition home or self-care (01) ==
LOC: M.ERS 17:12 → M.TBA-ER 18:37 → M.3W 18:37
PROVIDERS: Family Medicine; ADMIT Internal Medicine; ATTEND Internal Medicine
DX: L02.11 Cutaneous abscess of neck (principal); M54.2 Cervicalgia; E11.9 Type 2 diabetes mellitus without complications; E66.01 Morbid (severe) obesity due to excess calories; F32.9 Major depressive disorder, single episode, unspecified; I10 Essential (primary) hypertension; Z79.4 Long term (current) use of insulin; Z79.899 Other long term (current) drug therapy; Z20.828 Contact with and (suspected) exposure to other viral communicable diseases

== ENCOUNTER 2020-08-06 09:29 | Emergency (ER) | payer OTHER ==
[~2020-08-06] VITALS: Ht 162.6 cm; Wt 167.8 kg
[~2020-08-06 09:29] MED LIST changes: +BACTRIM DS TAB1 EACH PO
[2020-08-06] MEDS ORDERED: TESSALON PERLE100 M1 PO (10:21)
[2020-08-06 10:29] VITALS: BP 149/95
== END 2020-08-06 10:29 | disposition home or self-care (01) ==
LOC: M.ERS 09:29
DX: B34.9 Viral infection, unspecified (principal); Z20.828 Contact with and (suspected) exposure to other viral communicable diseases; K21.9 Gastro-esophageal reflux disease without esophagitis; E11.9 Type 2 diabetes mellitus without complications; I10 Essential (primary) hypertension; G43.909 Migraine, unspecified, not intractable, without status migrainosus; E66.01 Morbid (severe) obesity due to excess calories; Z68.44 Body mass index [BMI] 60.0-69.9, adult; Z88.1 Allergy status to other antibiotic agents; Z91.041 Radiographic dye allergy status; Z98.890 Other specified postprocedural states

== ENCOUNTER 2020-09-01 12:26 | Emergency (ER) | payer OTHER ==
[~2020-09-01] VITALS: Ht 162.6 cm; Wt 167.8 kg
[~2020-09-01 12:26] MED LIST changes: +TESSALON PERLE100 M1 PO
[2020-09-01 13:09] LABS: INFLUENZA A ANTIGEN Negative (Negative); INFLUENZA B ANTIGEN Negative (Negative)
[2020-09-01 13:14] LABS: ABSOLUTE BASOPHILS 0.1 thou/uL (0.0-0.2); ABSOLUTE EOSINOPHILS 0.1 thou/uL (0.0-0.7); ABSOLUTE LYMPHOCYTES 2.4 thou/uL (0.8-5.3); ABSOLUTE MONOCYTES 0.7 thou/uL (0.0-1.2); ABSOLUTE NEUTROPHILS 6.9 thou/uL (1.6-8.1); BASOPHILS 1.1 %; EOSINOPHILS 1.4 %; HEMATOCRIT 40.5 % (37.0-47.0); HEMOGLOBIN 13.7 gm/dL (12.0-15.0); LYMPHOCYTES 23.5 %; MCH 30.7 pg (26.0-34.0); MCHC 33.9 g/dL (28.0-37.0); MCV 90.6 fL (80.0-100.0); MONOCYTES 6.8 %; NUCLEATED RBCS 0 /100WBC; PLATELET COUNT* 188 thou/uL (150-400); POLYS 67.2 %; RBC 4.47 mil/uL (4.20-5.00); RDW-CV 13.1 % (10.5-14.5); WBC 10.3 thou/uL (4.0-11.0)
[2020-09-01 13:24] LABS: CALCIUM 8.5 mg/dL (8.5-10.1); CREATININE 0.7 mg/dL (0.6-1.3); POTASSIUM 4.1 mmol/L (3.5-5.1)
[2020-09-01 13:40] LABS: ALBUMIN 2.9 g/dL (3.4-5.0); TOTAL BILIRUBIN 0.2 mg/dL (<0.1-1.0)
[2020-09-01] MEDS ORDERED: BUTALB-APAP-CA1 EACH PO (14:23)
[2020-09-01] MEDS ORDERED: VENTOLIN HFA 1818 GM INH (14:23)
[2020-09-01] MEDS ORDERED: PREDNISONE 20 M20 MG PO (14:23)
[2020-09-01] MEDS ORDERED: CEFDINIR300 MG PO (14:23)
[2020-09-01 14:45] VITALS: BP 147/70
--- NOTE | 2020-09-01 15:53 | EKG ---
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: [place] : 1985 Requested By: Vinita Tsang Order Number: [id number] MD: Robbi Anglin Measurements Intervals [place] Rate: 77 P: 13 UT: 151 QRS: 21 QRSD: 99 T: 26 QT: 384 QTc: 435 Interpretive Statements Sinus rhythm Inferior Q waves noted Low voltage, precordial leads Baseline wander in lead(s) II,III,aVF No previous ECG available for comparison Electronically Signed On 09-01-2020 15:53:44 CDT by Robbi Anglin [email or web address] <ELECTRONICALLY SIGNED> By: Robbi Anglin MD, FACC 09/01/20 1553 1233 1233 Robbi Anglin MD, FAC /EPI
== END 2020-09-01 14:45 | disposition home or self-care (01) ==
LOC: M.ERS 12:26
PROVIDERS: Nurse Practitioner Family
DX: J98.8 Other specified respiratory disorders (principal); Z20.828 Contact with and (suspected) exposure to other viral communicable diseases; K21.9 Gastro-esophageal reflux disease without esophagitis; E11.9 Type 2 diabetes mellitus without complications; I10 Essential (primary) hypertension; G43.909 Migraine, unspecified, not intractable, without status migrainosus; Z79.899 Other long term (current) drug therapy; Z79.4 Long term (current) use of insulin; Z88.1 Allergy status to other antibiotic agents; Z91.041 Radiographic dye allergy status

== ENCOUNTER 2020-09-03 12:01 | Emergency (ER) | payer OTHER ==
[~2020-09-03] VITALS: Ht 162.6 cm; Wt 167.8 kg
[~2020-09-03 12:01] MED LIST changes: +CEFDINIR300 MG PO; +PREDNISONE 20 M20 MG PO; +VENTOLIN HFA 1818 GM INH
[2020-09-03 13:14] LABS: ABSOLUTE BASOPHILS 0.1 thou/uL (0.0-0.2); ABSOLUTE EOSINOPHILS 0.1 thou/uL (0.0-0.7); ABSOLUTE LYMPHOCYTES 1.6 thou/uL (0.8-5.3); ABSOLUTE MONOCYTES 0.5 thou/uL (0.0-1.2); ABSOLUTE NEUTROPHILS 9.6 thou/uL (1.6-8.1); BASOPHILS 0.9 %; EOSINOPHILS 0.6 %; HEMATOCRIT 43.1 % (37.0-47.0); HEMOGLOBIN 14.5 gm/dL (12.0-15.0); LYMPHOCYTES 13.9 %; MCH 30.4 pg (26.0-34.0); MCHC 33.7 g/dL (28.0-37.0); MCV 90.3 fL (80.0-100.0); MONOCYTES 3.9 %; MPV 8.2 fl. (7.2-11.1); NUCLEATED RBCS 0 /100WBC; PLATELET COUNT* 224 thou/uL (150-400); POLYS 80.7 %; RBC 4.77 mil/uL (4.20-5.00); RDW-CV 13.1 % (10.5-14.5); WBC 11.9 thou/uL (4.0-11.0)
[2020-09-03 13:21] LABS: CALCIUM 8.7 mg/dL (8.5-10.1); CREATININE 0.9 mg/dL (0.6-1.3); POTASSIUM 4.7 mmol/L (3.5-5.1)
[2020-09-03 13:26] LABS: ALBUMIN 3.1 g/dL (3.4-5.0); TOTAL BILIRUBIN 0.2 mg/dL (<0.1-1.0); TOTAL PROTEIN 7.8 g/dL (6.4-8.2)
[2020-09-03] MEDS ORDERED: PROMETHAZI6.25 MG/5 PO (14:35)
[2020-09-03] MEDS ORDERED: TESSALON PERLE100 MG PO (14:35)
[2020-09-03] MEDS ORDERED: APAP W/CODEINE1 TA2 PO (15:46)
[2020-09-03 15:50] VITALS: BP 134/83
--- NOTE | 2020-09-04 10:00 | EKG ---
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[facility] : 1985 Requested By: Jose Mcfadden Order Number: [id number] MD: Rodolfo Partida Measurements Intervals [place] Rate: 80 P: 14 CO: 143 QRS: 26 QRSD: 101 T: 38 QT: 372 QTc: 430 Interpretive Statements Sinus rhythm Compared to ECG 09/01/2020 12:33:10 Inferior Q waves no longer present no change Electronically Signed On 09-04-2020 10:00:00 CDT by Rodolfo Partida [email or web address] <ELECTRONICALLY SIGNED> By: Rodolfo Partida MD, [facility] 09/04/20 1000 1237 1237 Rodolfo Partida MD, [facility] /EPI
== END 2020-09-03 15:50 | disposition home or self-care (01) ==
LOC: M.ERS 12:01
PROVIDERS: Physician Assistant
DX: E11.65 Type 2 diabetes mellitus with hyperglycemia (principal); G43.909 Migraine, unspecified, not intractable, without status migrainosus; R06.00 Dyspnea, unspecified; I10 Essential (primary) hypertension; K21.9 Gastro-esophageal reflux disease without esophagitis; Z20.828 Contact with and (suspected) exposure to other viral communicable diseases; Z79.4 Long term (current) use of insulin; Z88.1 Allergy status to other antibiotic agents; Z91.041 Radiographic dye allergy status; Z98.890 Other specified postprocedural states

== ENCOUNTER 2020-09-17 21:47 | Emergency (ER) | payer OTHER ==
[~2020-09-17] VITALS: Ht 162.6 cm; Wt 170.1 kg
[~2020-09-17 21:47] MED LIST changes: +APAP W/CODEINE1 TA2 PO; +PROMETHAZI6.25 MG/5 PO; +TESSALON PERLE100 MG PO
[2020-09-17] MEDS ORDERED: VENLAFAXINE H37.5 M2 PO (22:00)
[2020-09-17] MEDS ORDERED: TORADOL 10 MG T10 MG PO (22:01)
[2020-09-17 22:17] LABS: INFLUENZA A ANTIGEN Negative (Negative); INFLUENZA B ANTIGEN Negative (Negative)
[2020-09-17] MEDS ORDERED: ZOFRAN ODT4 MG DISSOLVE (22:53)
[2020-09-17 22:59] VITALS: BP 127/73
== END 2020-09-17 23:00 | disposition home or self-care (01) ==
LOC: M.ERS 21:47
PROVIDERS: Emergency Medicine Emergency Medical Services
DX: U07.1 COVID-19 (principal); K21.9 Gastro-esophageal reflux disease without esophagitis; E11.9 Type 2 diabetes mellitus without complications; I10 Essential (primary) hypertension; G43.909 Migraine, unspecified, not intractable, without status migrainosus; Z91.041 Radiographic dye allergy status; Z88.1 Allergy status to other antibiotic agents; Z98.890 Other specified postprocedural states; Z79.4 Long term (current) use of insulin

== ENCOUNTER 2020-09-22 14:17 | Emergency (ER) | payer OTHER ==
[~2020-09-22] VITALS: Ht 162.6 cm; Wt 170.1 kg
[~2020-09-22 14:17] MED LIST changes: +TORADOL 10 MG T10 MG PO; +VENLAFAXINE H37.5 M2 PO; +ZOFRAN ODT4 MG DISSOLVE
[2020-09-22] MEDS ORDERED: PROMETHAZI6.25 MG/5 PO (15:06)
[2020-09-22] MEDS ORDERED: ZPAK PO (15:06)
[2020-09-22] MEDS ORDERED: DOXYCYCLINE 10100 M2 PO (15:15)
[2020-09-22 15:33] VITALS: BP 142/98
== END 2020-09-22 15:33 | disposition home or self-care (01) ==
LOC: M.ERS 14:17
DX: U07.1 COVID-19 (principal); J18.9 Pneumonia, unspecified organism; E11.9 Type 2 diabetes mellitus without complications; I10 Essential (primary) hypertension; G43.909 Migraine, unspecified, not intractable, without status migrainosus; K21.9 Gastro-esophageal reflux disease without esophagitis; Z90.49 Acquired absence of other specified parts of digestive tract; Z98.890 Other specified postprocedural states; Z79.899 Other long term (current) drug therapy; Z79.4 Long term (current) use of insulin; Z88.1 Allergy status to other antibiotic agents; Z91.041 Radiographic dye allergy status

== ENCOUNTER 2020-12-05 08:13 | Emergency (ER) | payer OTHER ==
[~2020-12-05] VITALS: Ht 162.6 cm; Wt 167.8 kg
[~2020-12-05 08:13] MED LIST changes: +DOXYCYCLINE 10100 M2 PO
[2020-12-05 11:00] VITALS: BP 150/124
== END 2020-12-05 11:01 | disposition home or self-care (01) ==
LOC: M.ERS 08:13
DX: G43.909 Migraine, unspecified, not intractable, without status migrainosus (principal); I10 Essential (primary) hypertension; E11.9 Type 2 diabetes mellitus without complications; K21.9 Gastro-esophageal reflux disease without esophagitis; Z79.4 Long term (current) use of insulin; Z79.899 Other long term (current) drug therapy; Z88.1 Allergy status to other antibiotic agents; Z91.041 Radiographic dye allergy status

== ENCOUNTER 2020-12-27 09:41 | Emergency (ER) | payer OTHER ==
[~2020-12-27] VITALS: Ht 162.6 cm; Wt 167.8 kg
[2020-12-27] MEDS ORDERED: HUMALOG100 UNIT/1 SUBQ (10:01)
[2020-12-27] MEDS ORDERED: WELLBUTRIN SR150 MG PO (10:01)
[2020-12-27] MEDS ORDERED: TYLENOL325 M1 PO (10:49)
[2020-12-27] MEDS ORDERED: KEFLEX500 M1 PO (10:49)
[2020-12-27 11:00] VITALS: BP 157/98
== END 2020-12-27 11:02 | disposition home or self-care (01) ==
LOC: M.ERS 09:41
DX: L73.2 Hidradenitis suppurativa (principal); L02.412 Cutaneous abscess of left axilla; L03.311 Cellulitis of abdominal wall

== ENCOUNTER 2021-02-06 09:58 | Emergency (ER) | payer OTHER ==
[~2021-02-06] VITALS: Ht 162.6 cm; Wt 167.8 kg
[~2021-02-06 09:58] MED LIST changes: +HUMALOG100 UNIT/1 SUBQ; +TYLENOL325 M1 PO; +WELLBUTRIN SR150 MG PO
[2021-02-06 10:10] VITALS: BP 127/85
[2021-02-06] MEDS ORDERED: TRAZODONE HCL100 MG PO (10:14)
[2021-02-06] MEDS ORDERED: BUPROPION XL300 MG PO (10:15)
[2021-02-06] MEDS ORDERED: TOUJEO SOL300 UNIT/1 SQ (10:15)
[2021-02-06] MEDS ORDERED: METFORMIN HCL1000 MG PO (10:15)
[2021-02-06] MEDS ORDERED: IBUPROFEN 800800 M1 PO (10:15)
[2021-02-06] MEDS ORDERED: EFFEXOR XR75 MG PO (10:16)
[2021-02-06] MEDS ORDERED: BACTRIM DS TAB1 EAC1 PO (10:40)
== END 2021-02-06 10:49 | disposition home or self-care (01) ==
LOC: M.ERS 09:58
DX: L03.311 Cellulitis of abdominal wall (principal); L03.116 Cellulitis of left lower limb; K21.9 Gastro-esophageal reflux disease without esophagitis; E11.9 Type 2 diabetes mellitus without complications; G43.909 Migraine, unspecified, not intractable, without status migrainosus; Z91.041 Radiographic dye allergy status; Z88.1 Allergy status to other antibiotic agents; Z98.890 Other specified postprocedural states; Z79.4 Long term (current) use of insulin

== ENCOUNTER 2021-03-09 14:34 | Emergency (ER) | payer OTHER ==
[~2021-03-09] VITALS: Ht 162.6 cm; Wt 167.8 kg
[~2021-03-09 14:34] MED LIST changes: +BACTRIM DS TAB1 EAC1 PO; +BUPROPION XL300 MG PO; +EFFEXOR XR75 MG PO; +METFORMIN HCL1000 MG PO; +TOUJEO SOL300 UNIT/1 SQ; +TRAZODONE HCL100 MG PO
[2021-03-09] MEDS ORDERED: DOXYCYCLINE 10100 M2 PO (15:07)
[2021-03-09 15:39] VITALS: BP 157/92
== END 2021-03-09 15:20 | disposition home or self-care (01) ==
LOC: M.ERS 14:34
DX: L03.116 Cellulitis of left lower limb (principal); K21.9 Gastro-esophageal reflux disease without esophagitis; E11.9 Type 2 diabetes mellitus without complications; I10 Essential (primary) hypertension; G43.909 Migraine, unspecified, not intractable, without status migrainosus; Z98.890 Other specified postprocedural states; Z91.041 Radiographic dye allergy status; Z88.1 Allergy status to other antibiotic agents

== ENCOUNTER 2021-04-24 07:16 | Emergency (ER) | payer OTHER ==
[~2021-04-24] VITALS: Ht 162.6 cm; Wt 167.4 kg
[2021-04-24] MEDS ORDERED: JARDIANCE10 MG (07:25)
[2021-04-24] MEDS ORDERED: TOUJEO MAX300 UNIT/1 SUBQ (07:25)
[2021-04-24 08:51] VITALS: BP 154/90
== END 2021-04-24 08:52 | disposition home or self-care (01) ==
LOC: M.ERS 07:16
DX: M79.671 Pain in right foot (principal); K21.9 Gastro-esophageal reflux disease without esophagitis; E11.9 Type 2 diabetes mellitus without complications; I10 Essential (primary) hypertension; G43.909 Migraine, unspecified, not intractable, without status migrainosus; Z91.041 Radiographic dye allergy status; Z88.1 Allergy status to other antibiotic agents; Z79.4 Long term (current) use of insulin; Z79.899 Other long term (current) drug therapy; Z98.890 Other specified postprocedural states

== ENCOUNTER 2021-05-13 13:19 | Emergency (ER) | payer OTHER ==
[~2021-05-13] VITALS: Ht 162.6 cm; Wt 167.4 kg
[~2021-05-13 13:19] MED LIST changes: +JARDIANCE10 MG; +TOUJEO MAX300 UNIT/1 SUBQ
[2021-05-13] MEDS ORDERED: HYDROXYZINE HCL25 M2 PO (13:29)
[2021-05-13] MEDS ORDERED: NEURONTIN100 MG PO (13:29)
[2021-05-13] MEDS ORDERED: TRULICITY1.5 MG/0.5 SUBQ (13:29)
[2021-05-13 13:50] LABS: ABSOLUTE BASOPHILS 0.1 thou/uL (0.0-0.2); ABSOLUTE EOSINOPHILS 0.2 thou/uL (0.0-0.7); ABSOLUTE MONOCYTES 0.9 thou/uL (0.0-1.2); ABSOLUTE NEUTROPHILS 7.1 thou/uL (1.6-8.1); BASOPHILS 0.8 %; EOSINOPHILS 1.5 %; HEMATOCRIT 44.7 % (37.0-47.0); HEMOGLOBIN 15.4 gm/dL (12.0-15.0); LYMPHOCYTES 26.7 %; MCH 30.3 pg (26.0-34.0); MCHC 34.5 g/dL (28.0-37.0); MCV 87.7 fL (80.0-100.0); MONOCYTES 8.2 %; MPV 7.8 fl. (7.2-11.1); NUCLEATED RBCS 0 /100WBC; PLATELET COUNT* 247 thou/uL (150-400); POLYS 62.8 %; RDW-CV 13.1 % (10.5-14.5); WBC 11.3 thou/uL (4.0-11.0)
[2021-05-13 13:59] LABS: CALCIUM 8.4 mg/dL (8.5-10.1); CREATININE 0.8 mg/dL (0.6-1.3); POTASSIUM 3.9 mmol/L (3.5-5.1)
[2021-05-13 14:03] LABS: ALBUMIN 3.4 g/dL (3.4-5.0); TOTAL BILIRUBIN 0.3 mg/dL (<0.1-1.0); TOTAL PROTEIN 8.2 g/dL (6.4-8.2)
[2021-05-13] MEDS ORDERED: ATIVAN0.5 M1 PO (15:40)
[2021-05-13] MEDS ORDERED: AMOXICILLIN 50500 MG PO (15:40)
[2021-05-13 15:53] VITALS: BP 146/90
--- NOTE | 2021-05-14 12:01 | EKG ---
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
== END 2021-05-13 15:54 | disposition home or self-care (01) ==
LOC: M.ERS 13:19
PROVIDERS: Nurse Practitioner Family
DX: F41.9 Anxiety disorder, unspecified (principal); J18.9 Pneumonia, unspecified organism; E11.9 Type 2 diabetes mellitus without complications; I10 Essential (primary) hypertension; K21.9 Gastro-esophageal reflux disease without esophagitis; G43.909 Migraine, unspecified, not intractable, without status migrainosus; E66.01 Morbid (severe) obesity due to excess calories; Z68.44 Body mass index [BMI] 60.0-69.9, adult; Z88.1 Allergy status to other antibiotic agents; Z91.041 Radiographic dye allergy status; Z98.890 Other specified postprocedural states

== ENCOUNTER 2021-06-08 12:33 | Emergency (ER) | payer OTHER ==
[~2021-06-08] VITALS: Ht 162.6 cm; Wt 165.1 kg
[~2021-06-08 12:33] MED LIST changes: +ATIVAN0.5 M1 PO; +HYDROXYZINE HCL25 M2 PO; +NEURONTIN100 MG PO; +TRULICITY1.5 MG/0.5 SUBQ
[2021-06-08 13:29] VITALS: BP 141/70
== END 2021-06-08 13:33 | disposition home or self-care (01) ==
LOC: M.ERS 12:33
DX: F41.9 Anxiety disorder, unspecified (principal); K21.9 Gastro-esophageal reflux disease without esophagitis; E11.9 Type 2 diabetes mellitus without complications; I10 Essential (primary) hypertension; E66.01 Morbid (severe) obesity due to excess calories; G43.909 Migraine, unspecified, not intractable, without status migrainosus; Z88.1 Allergy status to other antibiotic agents; Z68.44 Body mass index [BMI] 60.0-69.9, adult

== ENCOUNTER 2021-07-19 09:52 | Emergency (ER) | payer OTHER ==
[~2021-07-19] VITALS: Ht 162.6 cm; Wt 165.6 kg
== END 2021-07-19 11:30 | disposition left against medical advice (07) ==
LOC: M.ERS 09:52
DX: R10.9 Unspecified abdominal pain (principal); Z20.822 Contact with and (suspected) exposure to COVID-19; R19.7 Diarrhea, unspecified; Z53.21 Procedure and treatment not carried out due to patient leaving prior to being seen by health care provider

== ENCOUNTER 2021-10-04 07:47 | Emergency (ER) | payer OTHER ==
[~2021-10-04] VITALS: Ht 162.6 cm; Wt 165.6 kg
[2021-10-04] MEDS ORDERED: ULTRAM 50MG TAB50 MG PO (08:14)
[2021-10-04] MEDS ORDERED: IBUPROFEN 800800 M1 PO (08:15)
[2021-10-04 08:29] VITALS: BP 136/81
== END 2021-10-04 08:30 | disposition home or self-care (01) ==
LOC: M.ERS 07:47
DX: G56.02 Carpal tunnel syndrome, left upper limb (principal); M77.8 Other enthesopathies, not elsewhere classified; M25.532 Pain in left wrist; K21.9 Gastro-esophageal reflux disease without esophagitis; F32.9 Major depressive disorder, single episode, unspecified; F41.9 Anxiety disorder, unspecified; I10 Essential (primary) hypertension; G43.909 Migraine, unspecified, not intractable, without status migrainosus; E66.01 Morbid (severe) obesity due to excess calories; Z68.44 Body mass index [BMI] 60.0-69.9, adult; Z98.890 Other specified postprocedural states; Z79.899 Other long term (current) drug therapy; Z79.4 Long term (current) use of insulin; Z91.041 Radiographic dye allergy status; Z88.1 Allergy status to other antibiotic agents